=== PATIENT | female | born 1955 ===

== ENCOUNTER → 2023-12-07 09:52 | Outpatient (BNVA) | payer MEDICARE, MEDICAID, SELFPAY | PROVIDERS: PCP Nurse Practitioner Family; Referring Provider Nurse Practitioner Family; Visit Provider Physician Assistant Surgical | DX: J43.9 Emphysema, unspecified (principal); R06.00 Dyspnea, unspecified; R06.2 Wheezing; F17.200 Nicotine dependence, unspecified, uncomplicated | CPT/HCPCS: 36415; 99205 ==

== ENCOUNTER 2023-12-07 18:25 | Outpatient (REF) | payer MEDICARE, MEDICAID, SELFPAY ==
[2023-12-07 12:57] LABS: Absolute Basophil Count 0.05 10^3/uL (0.0-0.2); Absolute Lymphocyte Count 3.44 10^3/uL (1.2-3.4); Absolute Monocyte Count 1.08 10^3/uL (0.1-0.8); Absolute Neutrophil Count 8.06 10^3/uL (1.2-6.7); Basophils % 0.4 %; Eosinophils % 0.8 %; HCT 43.3 % (36.0-46.0); HGB 14.2 g/dL (11.2-15.7); Immature Grans % 0.8 %; Lymphocytes % 26.8 %; MCH 28.6 pg (27.0-33.0); MCHC 32.8 % (32.0-36.0); MCV 87 fL (80-95); MPV 10.6 fL (8.0-11.0); Monocytes % 8.4 %; Neutrophils % 62.8 %; Platelet Count 232 10^3/uL (130-400); RBC 4.96 10^6/uL (3.93-5.22); RDW 14.8 % (11.7-14.6); RDW-SD 47.5 fL; WBC 12.83 10^3/uL (4.4-10.8)
[2023-12-07 13:12] LABS: Anion Gap 11.1 mmol/L (3-11); BUN 28 mg/dL (7-18); CO2 23.9 mmol/L (21.0-32.0); Calcium 9.3 mg/dL (8.5-10.1); Chloride 103 mmol/L (98-107); Estimated GFR 61.75 (mL/min/1.73m2); Glucose 79 mg/dL (74-106); NT-proBNP 164 pg/mL (<300); Sodium 138 mmol/L (136-145)
== END 2023-12-07 18:26 | disposition home or self-care (01) ==
LOC: LBN 18:25
PROVIDERS: PCP Nurse Practitioner Family; Visit Provider Physician Assistant Surgical
DX: J44.1 Chronic obstructive pulmonary disease with (acute) exacerbation (principal); J43.9 Emphysema, unspecified
CPT/HCPCS: 80048; 83880; 85025